=== PATIENT | male | born 1990 | race American Indian/Alaskan Native ===

== ENCOUNTER 2018-09-06 20:22 | Emergency (ER) | payer SELFPAY ==
[2018-09-06 21:16] VITALS: O2SAT 98
[2018-09-06] MEDS ORDERED: cefTRIAXone (Rocephin) 250 mg Inj IM STA (21:25)
--- NOTE | 2018-09-06 21:45 | C.PDOC ---
History Of Present Illness 28 year old male states his girlfriend was recently treated for a vaginal complaint for which she was treated with a medication she took for 10 days, she told him it was a UTI but now he is having penile discharge. No other complaints. Time Seen by Provider: 09/06/18 20:45 Chief Complaint (Nursing): Male Genitourinary History Per: Patient History/Exam Limitations: no limitations Onset/Duration Of Symptoms: Hrs Current Symptoms Are (Timing): Still Present Quality Of Discomfort: Unable To Describe Associated Symptoms: Other (Penile discharge). denies: Fever Past Medical History Reviewed: Historical Data, Nursing Documentation, Vital Signs Vital Signs: Last Vital Signs Temp 98 F 09/06/18 20:34 Pulse 82 09/06/18 20:34 Resp 20 09/06/18 20:34 BP 148/81 09/06/18 20:34 Pulse Ox 98 09/06/18 20:34 Family History: States: Unknown Family Hx - Social History Hx Alcohol Use: Yes Hx Substance Use: Yes - Immunization History Hx Tetanus Toxoid Vaccination: No Hx Influenza Vaccination: No Hx Pneumococcal Vaccination: No Review Of Systems Constitutional: Negative for: Fever, Chills Gastrointestinal: Negative for: Abdominal Pain Genitourinary: Positive for: Penile Discharge. Negative for: Dysuria, Rash, Penile Pain Physical Exam - Physical Exam Appears: Non-toxic, No Acute Distress Skin: Normal Color, Warm, No Rash Head: Atraumatic, Normacephalic Eye(s): bilateral: Normal Inspection Gastrointestinal/Abdominal: Soft, No Distention Back: No CVA Tenderness Male Genital: Other (Deferred) Neurological/Psych: Oriented x3, Normal Speech, Normal Cranial Nerves (Grossly intact) ED Course And Treatment O2 Sat by Pulse Oximetry: 98 (Room air) Pulse Ox Interpretation: Normal Medical Decision Making Medical Decision Making: GC/chlamydia and trichomonas cultures sent, will treat empirically and instructed to follow up with primary. Disposition Counseled Patient/Family Regarding: Diagnosis, Need For Followup - Disposition Referrals: at [facility] [Outside] Disposition: HOME/ ROUTINE Disposition Time: 21:43 Condition: STABLE Instructions: Urethritis (DC) Forms: [facility] (Swazi), General Discharge Instructions - Clinical Impression Clinical Impression: Urethritis - PA / PHYSICIAN PRACTICE COORDINATOR / Resident Statement MD/DO has reviewed & agrees with the documentation as recorded. - Scribe Statement The provider has reviewed the documentation as recorded by the Scribe Jose Ramon Rodney All medical record entries made by the Scribe were at my direction and personally dictated by me. I have reviewed the chart and agree that the record accurately reflects my personal performance of the history, physical exam, medical decision making, and the department course for this patient. I have also personally directed, reviewed, and agree with the discharge instructions and disposition.
[2018-09-06 22:05] VITALS: BP 139/83; PULSE 88; RESP 16; TEMP 98.1
== END 2018-09-06 22:05 | disposition home or self-care (01) ==
LOC: C.ER 20:22
DX: N34.2 Other urethritis (principal)
CPT/HCPCS: 87491; 87591; 96372; 99284; J0696